=== PATIENT | female | born 1995 | race Caucasian/White ===

== ENCOUNTER → 2018-07-21 | Outpatient (CLI) | payer MEDICAID ==
[2017-01-13 19:30] VITALS: BMI 34.8
[~2018-07-21] MED LIST: ACE3 PO; ACET500T68 PO; FLU60SYR36 IM; IBUP800T37 PO; PNV1TABL77 PO
[2018-07-21 09:52] LABS: PLATELET COUNT, AUTOMATED 234 K/uL (150-450)
== END ==
LOC: LAB 08:38
PROVIDERS: ATTEND Obstetrics & Gynecology
DX: Z34.91 Encounter for supervision of normal pregnancy, unspecified, first trimester (principal)
CPT/HCPCS: 36415; 81001; 85025; 86592; 86703; 86762; 86850; 86900; 86901; 87088; 87340

== ENCOUNTER → 2018-08-14 | Outpatient (CLI) | payer MEDICAID ==
[2017-01-13 19:30] VITALS: BMI 34.8
== END ==
LOC: LAB 07:59
PROVIDERS: ATTEND Student in an Organized Health Care Education/Training Program
DX: Z34.91 Encounter for supervision of normal pregnancy, unspecified, first trimester (principal)
CPT/HCPCS: 87491; 87591

== ENCOUNTER → 2018-09-13 | Outpatient (CLI) | payer MEDICAID ==
[2017-01-13 19:30] VITALS: BMI 34.8
[~2018-09-13] MED LIST changes: +BUTA1TAB14 PO
== END ==
LOC: LAB 08:05
PROVIDERS: ATTEND Obstetrics & Gynecology
DX: O24.410 Gestational diabetes mellitus in pregnancy, diet controlled (principal)
CPT/HCPCS: 36415; 82950

== ENCOUNTER → 2018-10-30 | Outpatient (CLI) | payer MEDICAID ==
[2017-01-13 19:30] VITALS: BMI 34.8
--- NOTE | 2018-10-30 14:03 | RADIOLOGY IMAGING REPORT ---
FACILITY: [facility] [place] PATIENT NAME: Antoinette Weldon : 1995 MR: [id number] V: [id number] EXAM DATE: ORDERING PHYSICIAN: JAZLYN GLEZ TECHNOLOGIST: [place] [facility] [place] Antoinette Weldon : 1995 Visit/Account:[id number] Date of Sevice: 10/30/2018 [facility] [place] OB ANATOMICAL SURVEY HISTORY: Anatomic survey COMPARISON: None. TECHNIQUE: Transabdominal imaging was performed for assessment of the fetus and maternal pelvic s tructures. Transvaginal imaging was not performed. FINDINGS: Intrauterine gestations: One. presentation: Variable. heart rate: 149 bpm. Amniotic fluid volume: Normal; DUNG 15.66 cm; MVP 4.95 cm. Placenta: Anterior. Uterus: Gravid, otherwise grossly unremarkable where visualized. Maternal adnexa/ovaries: Grossly unremarkable, ovaries not visualized. Cervix: Grossly long and closed. Gestational Parameters: BPD: 5.147 m, 66th percentile HC: 19.45 cm, 64th percentile AC: 18.4 cm, 94th percentile FL: 3.58 cm, 47th percentile Average ultrasound age (AUA): 22 weeks/ one days Estimated age based on LMP: 21 weeks/ one days Estimated weight (EFW): 490 grams +/- 72 grams consistent with the 94th percentile Anatomic Survey: Intracranial structures, 4-chamber heart, stomach, kidneys, urinary bladder, spine, 3-vessel cord and cord insertion are unremarkable. Two upper and two lower extremities visualized. IMPRESSION: Single viable fetus in varied presentation with an estimated gestational age by measurements of 22 we eks and one day. . Estimated gestational age by LMP is 21 weeks and one day. Estimated weight 490 g which is consistent with the 94th percentile Report Dictated By: Jess Armas MD at 10/30/2018 1:55 PM Report E-Signed By: Jess Armas MD at 10/30/2018 1:59 PM WSN:MARIA LUISA
== END ==
LOC: RAD 08:02
PROVIDERS: ATTEND Student in an Organized Health Care Education/Training Program
DX: Z02.9 Encounter for administrative examinations, unspecified (principal)

== ENCOUNTER → 2018-12-11 | Outpatient (CLI) | payer MEDICAID ==
[2017-01-13 19:30] VITALS: BMI 34.8
[~2018-12-11] MED LIST changes: +BLOO-292 ASDIRECTED; +BLOO-960 MC; +DIPH0.5D12 IM; +LANC-165 ASDIRECTED
[2018-12-11 16:09] LABS: PLATELET COUNT, AUTOMATED 194 K/uL (150-450)
== END ==
LOC: LAB 14:56
PROVIDERS: ATTEND Student in an Organized Health Care Education/Training Program
DX: Z34.92 Encounter for supervision of normal pregnancy, unspecified, second trimester (principal)
CPT/HCPCS: 36415; 82950; 85025

== ENCOUNTER → 2018-12-13 | Outpatient (CLI) | payer MEDICAID ==
[2017-01-13 19:30] VITALS: BMI 34.8
== END ==
LOC: LAB 07:03
PROVIDERS: ATTEND Student in an Organized Health Care Education/Training Program
DX: O99.810 Abnormal glucose complicating pregnancy (principal)
CPT/HCPCS: 36415; 82951; 82952

== ENCOUNTER 2018-12-18 14:34 | Outpatient (RCR) | payer MEDICAID ==
[2017-01-13 19:30] VITALS: BMI 34.8
--- NOTE | 2018-12-19 09:58 | Medical Nutrition Therapy ---
Nutrition/Food History Breakfast: eggs, 1/2c hashbrowns Lunch: sandwich, or leftovers Dinner: meat, 1/2c rice, potatoe, noodles, veg Snacks: string cheese, jerky Nutritional Education Nutrition Education Topic: Diabetic Nutrition (gestational) Learning Readiness: Interested Teaching Methods: Discussion Response to Teaching: Return demonstration, Verbalize understanding Teaching Recipient: Patient Nutrition Counseling: Late entry of 12/18: 2nd pregnacily with gestational DM. Pt was aware of diet for gestational DM and has cut back her CHO to 30gm bkft and 45 gm lunch and supper. Recommend pt add 15gm CHO + protein tid snacks if she is hungary. Pt has been taking her BG before breakfast and 2 hrs after each meal. Reviewed BG readings. Most reading were within desired range. Pt identified what foods triggered higher reading. Pt is craving sweets which did cause a higher reading when she ate it. Encoruaged pt to try diet jello, diet hard candy and gums and small piece of dark chocolate to help with cravings. No f/u appt scheduled d/t demonstration of knowlege but contact information provided and pt encouraged to contact RD/CDE if further questions or concerns. Nutrition Monitoring & Eval RD Patient Assessment Time: [address] Assessment Type: RD Education Nutritional Comment: Provided 45 minutes of diabetes education focusing on nutrition and BG readings. Copies To Copies to: GENNY TORRES DO ; JESÚS MICHELLE Dec 19, 2018 09:58
== END 2018-12-27 10:51 | disposition home or self-care (01) ==
LOC: DIET 14:34
PROVIDERS: ATTEND Student in an Organized Health Care Education/Training Program
DX: O24.410 Gestational diabetes mellitus in pregnancy, diet controlled (principal)
CPT/HCPCS: G0108

== ENCOUNTER 2019-01-20 19:28 | Observation (INO) | payer MEDICAID ==
[~2019-01-20] VITALS: Ht 157.5 cm; Wt 79.4 kg
[~2019-01-20 19:28] MED LIST changes: -DIPH0.5D12 IM; +DIPH0.5S2 IM
[2019-01-20] MEDS ORDERED: FLUSH 10 ML SYR IVP PRN (20:25)
[2019-01-20 21:06] LABS: PLATELET COUNT, AUTOMATED 185 K/uL (150-450)
[2019-01-20] MEDS ORDERED: LR(*) 1000 ML BAG 1,000 ML IV PRN ×2 (21:35→21:45)
[2019-01-20 21:41] VITALS: BP 140/89; Ht 157.5 cm; Wt 79.4 kg
--- NOTE | 2019-01-20 21:46 | History & Physical ---
History of Present Illness Age of Patient: 23 : 2 Para or TPAL: 1 EDC per LMP: Mar 11, 2019 EDC per U/S: Mar 11, 2019 Estimated Gestational Age: 32.6 Chief Complaint "contractions" History of Present Illness Pt is a 23 y/o Cauc at 32 6/7 that presents with report of contractions since midday, became more noticeable around 3 pm and she started monitoring contractions. Denies any vaginal bleeding, LOF, intercourse in the last 24-48 hours. Does report increased pelvic pressure. Reports +FM. Pt denies hx of labor with prior . Did have a hx of PreE and GDM. Pt reported that her BS at 1800 was 68 and did eat something, postprandial was 120. Denies POSEY, epigastric pain or visual changes. History Patient's Blood Type: A Positive Rubella Status: Immune Group B Strep Screen: Unknown Obstetrical History: obstetric hx has been complicated by A1GDM. Previous was induced at 37 wks for PreE. Uncomplicated thereafter. Past Medical History: Denies acute or chronic health problems, no prior hx of labor. Takes vitamins and occasional tylenol. Had 2011 ACL R wrist surgery Allergies: Coded Allergies: No Known Drug Allergies (Unverified , 01/13/17) Social History: , accompanied by . Denies alcohol tobacco or drug use. Family History: FH: leukemia P UNCLE FH: lung cancer PGF FH: non-Hodgkin's lymphoma MGM FHx: lymphoma M AUNT Med Rec Home Meds Active Scripts Lancets (Blood Lancets) 30 Gauge Each, EA ASDIRECTED DIRECTED, #100 5 Refills Check blood glucose fasting in AM than 2 hours after each meal (4 times per day). Prov:GENNY TORRES DO 12/13/18 True Metrix Glucose Test Strip (True Metrix Glucose Test Strip) 1 Each Strip, EACH ASDIRECTED DIRECTED, #100 5 Refills Check blood glucose fasting in AM then 2 hours after each meal (4 times per day). Prov:GENNY TORRES DO 12/13/18 Blood-Glucose Meter (BLOOD GLUCOSE METER) 1 Each Each, EACH MC DIRECTED, #1 0 Refills Check blood glucose fasting in AM and 2 hours after each meal (4 times per day). Prov:GENNY TORRES DO 12/13/18 Butalb/Acetaminophen/Caff 50-325-40 Mg (FIORICET 50-325-40) 1 Each Tablet, 1-2 TAB PO Q6H PRN for headache, #30 TAB 1 Refill Prov:JAZLYN GLEZ MD 09/12/18 Reported Medications Acetaminophen (TYLENOL EXTRA STRENGTH) 500 Mg Tablet, 1000 MG PO PRN, TAB 01/13/17 Pnv Cmb#21/Iron/Folic Acid ( COMPLETE CAPLET) 1 Each Tablet, 1 EACH PO DAILY 01/13/17 Review of Systems Constitutional: No Fever, No Chills Neurological: No Dizziness Eyes: No Vision Change Cardiovascular: No Chest Pain Respiratory: No Shortness of Breath Gastrointestinal: No Nausea, No Vomiting, No Diarrhea Genitourinary: No Dysuria, No Hematuria Psychiatric: No Depression, No Anxiety Exam General Exam General Apperance: Alert/Awake/No Acute Distress, Afebrile; No Facial Edema Neuro: No Headache ENT: Moist Mucous Membranes Cardiovascular: Regular Rate and Rhythm Respiratory: Clear to Auscultation Abdomen: Soft, Non-Tender, Non-Distended, Gravid - Non-Tender : No CVA Tenderness Psychological: Alert & Oriented X3 Vaginal Discharge/Fluid?: Large Amount (yellow white creamy discharge) Cervical Dialation: 0 Cervical Effacement (%): 0 Cervical Consistency: Soft Cervical Position: Posterior Station: Ballotable Presentation: Vertex (per US, MVP 2.77) Uterine Contractions(Q min): 8 (UC have ceased after fluid bolus.) Uterine Contraction Strength: Mild UC Resting Tone: Soft Fetus Feeling Movement?: Yes Estimated Weight(grams): 1200 Heart Tones: 140 Heart Tone Variabilty: Moderate FHT Accelerations: Present FHT Decelerations: Variable (one variable noted, patient repositioned. 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 DC to home with labor precautions, return if UCs return, increase in frequency, ROM or vaginal bleeding, decreased movement. 2. Keep regular appt. 3. Push fluids,increase protein intake. (2) Gestational hypertension Status: Acute Assessment & Plan: A: Normotensive P: 1. reviewed PIH precautions, return if headache, epigastric pain or visual changes. (3) Gestational diabetes mellitus, class A1 Status: Acute Assessment & Plan: A: Euglycemic on discharge P: 1. continue to monitor BS as instructed in clinic 2. F/U as routinely scheduled. Condition Condition improved, no contractions after fluid bolus. RICARDA CHANEY CNM Jan 20, 2019 21:25
[2019-01-20] MEDS ORDERED: PREN-127 PO (22:22)
--- NOTE | 2019-01-20 22:25 | OB/GYN Discharge Summary ---
Discharge Summary Reason for Hosp/Final Diag: (1) contractions Onset Date: ~ 01/20/2019 Status: Resolved (2) Gestational hypertension Status: Acute Hospital Course & Plan: Normotensive P: 1. continue to monitor as indicated, reviewed s/s of Pre E (3) Gestational diabetes mellitus, class A1 Status: Acute Hospital Course & Plan: A: Euglycemic P: 1. continue to monitor BS as instructed in clinic, maintain A1GDM diet. 2. Keep regularly scheduled appt Weight (Pounds): 175 Result Diagram: 01/20/19203401/20/192034 Condition: Improved Discharge: Home, Self Residential Meds Active Scripts Lancets (Blood Lancets) 30 Gauge Each, EA ASDIRECTED DIRECTED, #100 5 Refills Check blood glucose fasting in AM than 2 hours after each meal (4 times per day). Prov:GENNY TORRES DO 12/13/18 True Metrix Glucose Test Strip (True Metrix Glucose Test Strip) 1 Each Strip, EACH ASDIRECTED DIRECTED, #100 5 Refills Check blood glucose fasting in AM then 2 hours after each meal (4 times per day). Prov:GENNY TORRES DO 12/13/18 Blood-Glucose Meter (BLOOD GLUCOSE METER) 1 Each Each, EACH MC DIRECTED, #1 0 Refills Check blood glucose fasting in AM and 2 hours after each meal (4 times per day). Prov:BRIANGENNY ARREDONDO DO 12/13/18 Butalb/Acetaminophen/Caff 50-325-40 Mg (FIORICET 50-325-40) 1 Each Tablet, 1-2 TAB PO Q6H PRN for headache, #30 TAB 1 Refill Prov:JAZLYN GLEZ MD 09/12/18 Reported Medications Acetaminophen (TYLENOL EXTRA STRENGTH) 500 Mg Tablet, 1000 MG PO PRN, TAB 01/13/17 Pnv Cmb#21/Iron/Folic Acid ( COMPLETE CAPLET) 1 Each Tablet, 1 EACH PO DAILY 01/13/17 Follow up with: [facility] [phone] Follow up in: Keep scheduled appoint Discharge Diet: Resume Prior Admit Diet, Increase Fluid Intake Discharge Activity: As Tolerates Special Instructions: RICARDA CHANEY CNM Jan 20, 2019 22:25
== END 2019-01-20 22:20 | disposition home or self-care (01) ==
LOC: INTOOBSV 19:28 → OB 19:28
PROVIDERS: ADMIT Obstetrics & Gynecology; ATTEND Obstetrics & Gynecology
DX: O47.03 False labor before 37 completed weeks of gestation, third trimester (principal); O13.3 Gestational [pregnancy-induced] hypertension without significant proteinuria, third trimester; O24.419 Gestational diabetes mellitus in pregnancy, unspecified control; Z3A.32 32 weeks gestation of pregnancy
CPT/HCPCS: 36416; 59025; 81001; 82570; 82731; 82948; 83615; 84156; 84550; 85025; 87077; 87081; 87186; 87210; G0378; G0379; 82040; 82247; 82310; 82374; 82435; 82565; 82947; 84075; 84132; 84155; 84295; 84450; 84460; 84520

== ENCOUNTER → 2019-02-12 | Outpatient (CLI) | payer MEDICAID ==
[2019-01-20 21:41] VITALS: BMI 32.0
[~2019-02-12] MED LIST changes: +PREN-127 PO
== END ==
LOC: LAB 08:07
PROVIDERS: ATTEND Student in an Organized Health Care Education/Training Program
DX: Z36.89 Encounter for other specified antenatal screening (principal)
CPT/HCPCS: 87081

== ENCOUNTER → 2019-02-14 | Outpatient (CLI) | payer MEDICAID ==
[2019-01-20 21:41] VITALS: BMI 32.0
[~2019-02-14] MED LIST changes: +BET6I IM ONLY
== END ==
LOC: LAB 09:39
PROVIDERS: ATTEND Student in an Organized Health Care Education/Training Program
DX: O13.3 Gestational [pregnancy-induced] hypertension without significant proteinuria, third trimester (principal)
CPT/HCPCS: 36415; 82040; 82247; 82310; 82374; 82435; 82565; 82570; 82947; 84075; 84132; 84155; 84156; 84295; 84450; 84460; 84520; 85027

== ENCOUNTER 2019-02-19 05:30 | Inpatient (IN) | payer MEDICAID ==
[~2019-02-19] VITALS: Ht 157.5 cm; Wt 81.6 kg
[2019-02-19] MEDS ORDERED: OXYTOCIN 30 UNIT/NS 500 ML 500 ML IV PRN ×2 (05:31)
[2019-02-19] MEDS ORDERED: FAMOTIDINE(*) 20MG/50ML PREMIX 50 ML IVPB PRN (05:31)
[2019-02-19] MEDS ORDERED: ceFAZolin(*) 2GM/D5W 50ML 50 ML IVPB PRN (05:31)
[2019-02-19] MEDS ORDERED: fentaNYL CITR 100 MCG/2 ML AMP IVP PRN (05:35)
[2019-02-19] MEDS ORDERED: LIDOCAINE/SOD BICARB 8.4% SYR SC PRN (05:35)
[2019-02-19] MEDS ORDERED: DLR(*) 1000 ML BAG 1,000 ML IV PRN ×2 (05:35→06:47)
[2019-02-19] MEDS ORDERED: TERBUTALINE SULF 1 MG/ML VIAL SUBQ PRN (05:35)
[2019-02-19] MEDS ORDERED: LIDOCAINE 1% LOCAL 300 MG/30ML INJ PRN (05:35)
[2019-02-19] MEDS ORDERED: METOCLOPRAMIDE 10 MG/2 ML SDV IVP PRN (05:35)
[2019-02-19] MEDS ORDERED: PENICILLIN G 5 MILLUN VIAL 5 MIU in NS(*) 0.9% 100 ML MINI-BAG 100 ML IVPB ONE ×2 (05:35→07:25)
[2019-02-19] MEDS: LR(*) 1000 ML BAG 1,000 ML IV PRN ×2 (06:07→09:39)
[2019-02-19 06:29] LABS: PLATELET COUNT, AUTOMATED 150 K/uL (150-450)
[2019-02-19 06:30] VITALS: BP 138/87; Ht 157.5 cm; Wt 81.6 kg
[2019-02-19] MEDS ORDERED: BUPIVACAINE 0.25% MPF INJ EPI PRN (07:25)
[2019-02-19] MEDS ORDERED: FENTANYL/ROPIVACAINE 100 ML BAG EPI PRN (07:25)
[2019-02-19] MEDS ORDERED: LIDOCAINE/PF 2% 200MG/10ML AMP 200 MG/10 ML AMPUL EPI PRN (07:25)
[2019-02-19] MEDS ORDERED: BUPIVACAINE 0.5% INJ 30ML VIAL EPI PRN (07:25)
[2019-02-19] MEDS ORDERED: fentaNYL CITR 100 MCG/2 ML AMP IT PRN (07:25)
[2019-02-19] MEDS ORDERED: LIDO/EPI 2% MPF 1:200,000 20ML EPI PRN (07:25)
[2019-02-19] MEDS ORDERED: ePHEDrine 25 MG/5 ML DISP.SYR IVP ONE (09:36)
[2019-02-19] MEDS ORDERED: fentaNYL CITR 100 MCG/2 ML AMP ONE (09:55)
[2019-02-19] MEDS ORDERED: FENTANYL/ROPIVACAINE 100ML BAG 0 ML ONE (09:56)
[2019-02-19] MEDS ORDERED: BUPIVACAINE 0.25% MPF INJ ONE (09:56)
[2019-02-19] MEDS ORDERED: ONDANSETRON 4 MG/2 ML VIAL ONE (09:56)
[2019-02-19] MEDS ORDERED: PENICILLIN G 2.5 MILLUN/100 ML 100 ML IVPB SCH (10:00)
[2019-02-19] MEDS ORDERED: HYDROCORTISONE 2.5% CR 30GM TB PR PRN (10:40)
[2019-02-19] MEDS ORDERED: INFLUENZA VIRUS VAC 0.5ML SYR IM ONLY ONE (10:40)
[2019-02-19] MEDS ORDERED: LANOLIN OINT 7 GM TUBE TP PRN (10:40)
[2019-02-19] MEDS ORDERED: BENZOCAINE 20% 60 ML BTL TP PRN (10:40)
[2019-02-19] MEDS ORDERED: GLYCERIN/WITCH HAZEL LEAF 1 PK TP PRN (10:40)
[2019-02-19] MEDS ORDERED: APAP/HYDROCODONE 325/5 TAB PO PRN (10:40)
[2019-02-19] MEDS ORDERED: MAGNESIUM HYDROXIDE* 30ML UDCP PO PRN (10:40)
[2019-02-19] MEDS ORDERED: OXYTOCIN 30 UNIT/NS 500 ML 500 ML ONE (10:56)
[2019-02-19] MEDS ORDERED: IBUPROFEN 800 MG TAB PO SCH ×2 (11:00→12:00)
[2019-02-19] MEDS ORDERED: METHYLERGONOVINE MAL 0.2MG/ML ONE (11:18)
[2019-02-19] MEDS ORDERED: KETOROLAC 30 MG/ML VIAL IVP ONE (11:19)
--- NOTE | 2019-02-19 12:32 | History & Physical ---
History of Present Illness Age of Patient: 23 : 2 Para or TPAL: 1 EDC per LMP: Mar 11, 2019 Estimated Gestational Age: 37.1 Chief Complaint IOL History of Present Illness 23-year-old who presents to labor and delivery for induction of labor secondary to gestational hypertension. Patient has received betamethasone injections 2. Patient's is also when comp kid by gestational diabetes and has been diet-controlled. Patient reports that she has had good movement while on labor and delivery. Reports spontaneous rupture of membranes with significant leaking of fluid around 9:30. No vaginal bleeding. History Patient's Blood Type: A Positive Rubella Status: Immune Group B Strep Screen: Positive Obstetrical History: Gestational diabetes A1/diet-controlled. Gestational hypertension Past Medical History: History of gestational diabetes in prior Allergies: Coded Allergies: No Known Drug Allergies (Unverified , 01/13/17) Social History: , accompanied by . Denies alcohol tobacco or drug use. Family History: FH: leukemia P UNCLE FH: lung cancer PGF FH: non-Hodgkin's lymphoma MGM FHx: lymphoma M AUNT Med Rec Home Meds Active Scripts Lancets (Blood Lancets) 30 Gauge Each, EA ASDIRECTED DIRECTED, #100 5 Refills Check blood glucose fasting in AM than 2 hours after each meal (4 times per day). Prov:GENNY TORRES DO 12/13/18 True Metrix Glucose Test Strip (True Metrix Glucose Test Strip) 1 Each Strip, EACH ASDIRECTED DIRECTED, #100 5 Refills Check blood glucose fasting in AM then 2 hours after each meal (4 times per day). Prov:GENNY TORRES DO 12/13/18 Blood-Glucose Meter (BLOOD GLUCOSE METER) 1 Each Each, EACH MC DIRECTED, #1 0 Refills Check blood glucose fasting in AM and 2 hours after each meal (4 times per day). Prov:GENNY TORRES DO 12/13/18 Butalb/Acetaminophen/Caff 50-325-40 Mg (FIORICET 50-325-40) 1 Each Tablet, 1-2 TAB PO Q6H PRN for headache, #30 TAB 1 Refill Prov:JAZLYN GLEZ MD 09/12/18 Reported Medications Vits W-Ca,Fe,Fa(<1MG) ( VITAMINS) 1 Each Tablet, 1 EACH PO DAILY, TAB 01/20/19 Acetaminophen (TYLENOL EXTRA STRENGTH) 500 Mg Tablet, 1000 MG PO PRN, TAB 01/13/17 Pnv Cmb#21/Iron/Folic Acid ( COMPLETE CAPLET) 1 Each Tablet, 1 EACH PO DAILY 01/13/17 Review of Systems All Systems Reviewed/Normal: Yes, Except as Noted Constitutional: No Fever, No Weight Loss, No Weight Gain, No Chills, No Night Sweats, No Other Neurological: No Syncope, No Confusion, No Weakness, No Dizziness, No Slurred Speech, No Other Eyes: No Vision Change, No Loss of Vision, No Photophobia, No Other ENT: No Hearing Loss, No Sinus Congestion, No Sore Throat, No Ear Ache, No Tinnitus, No Other Cardiovascular: No Chest Pain, No Palpitations, No Orthostatic Hypotension, No Other Respiratory: No Shortness of Breath, No Cough, No Wheezing, No Other Gastrointestinal: No Nausea, No Vomiting, No Diarrhea, No Dysphagia, No Constipation, No Early Satiety, No Hematemesis, No Hematochezia, No Melena, No Abdominal Pain, No Other Genitourinary: No Dysuria, No Hematuria, No Urinary Incontinence, No Other Musculoskeletal: No Pain, No Sprain, No Strain, No Impaired Mobility, No Other Psychiatric: No Depression, No Anxiety, No Other Exam General Exam Vital Signs Vital Signs Date Time Temp Pulse Resp B/P (MAP) Pulse Ox O2 Delivery O2 Flow Rate FiO2 02/19/19 06:30 99.3 84 17 138/87 (104) 94 Room Air General Apperance: Alert/Awake/No Acute Distress Neuro: No Gross deficits Eyes: Normal Extraocular Movement & Vison, PERRLA ENT: Normal Cardiovascular: Regular Rate and Rhythm Respiratory: No Respiratory Distress, Clear to Auscultation Abdomen: Soft, Non-Tender, Non-Distended, Gravid - Non-Tender : Normal Musculoskeletal: No Weakness/Pain Extremities: No Cyanosis,Clubbing or Edema Integumentary: Skin Intact without Lesions or Rash Psychological: Alert & Oriented X3 Vaginal Discharge/Fluid?: Clear Fluid, Bloody Fluid Cervical Dialation: 3 Cervical Effacement (%): 80 Cervical Consistency: Soft Station: -2 Presentation: Vertex Uterine Contractions(Q min): 2 UC Resting Tone: Soft Fetus Feeling Movement?: Yes Heart Tone Variabilty: Moderate FHT Accelerations: 15X15 FHT Decelerations: None FHT Category: I Medical Decision Making Data Points Result Diagram: 02/19/1960902/19/19609 Pre-Admit Course Medical Record Review: Yes VTE Prophylasis: Adult Deep Vein Thrombosis/Pulmonary: No Assessment and Plan BUSINESS CONSULT Assessment: Stable BUSINESS CONSULT Plan: Routine Labor/Induct Care Problems: (1) Gestational diabetes mellitus, class A1 Status: Acute Assessment & Plan: Monitor blood sugars in active labor. range 90-120. Ins ulin or D5LR to keep in range. (2) Gestational hypertension Status: Acute Assessment & Plan: Oxytocin IOL. Plan for . Problem Qualifiers (1) Gestational hypertension: Trimester: third trimester Qualified Codes: O13.3 - Gestational [-induced] hypertension without significant proteinuria, third trimester GENNY TORRES DO February 19, 2019 12:32
--- NOTE | 2019-02-19 12:58 | OB Delivery Note ---
Delivery Note Vaginal Delivery Type: Spont. Vaginal Delivery Delivery Date: February 19, 2019 Delivery Time: 10:12 Estimated Gestational Age(wks): 37.1 Length of Labor Stage I (hrs): 1.5 Length of Labor Stage II (hrs): 0.25 Labor Stage III (minutes): 7 Delivery Anesthesia: Local (10 cc 1% Lidocaine for repair only) Sex: Male Weight (gms): 3465 (7#10oz) Apgars: 1 Minute (8), 5 Minute (9) Repair Needed: Laceration, 2nd Degree Estimated Blood Loss: 500 (Post hemorrhage 2 hours after delivery of 1070 gm (weighed)) Delivery Complications: Precipitous Buccaro in Attendence: GENNY Jennings DO February 19, 2019 12:58
--- NOTE | 2019-02-19 13:59 | DELIVERY NOTE ---
DELIVERY DATE: February 19, 2019 SURGEON: Carrillo Almodovar DO ANESTHESIA: 10 cc of 1% lidocaine for repair only. PREOPERATIVE DIAGNOSES 1. 23-year-old 2, para 1 at 37-1/7 weeks gestation. 2. Induction of labor. 3. Gestational hypertension. 4. Gestational diabetes A1. POSTOPERATIVE DIAGNOSES 1. 23-year-old 2, para 1 at 37-1/7 weeks gestation. 2. Induction of labor. 3. Gestational hypertension. 4. Gestational diabetes A1. 5. Delivered. 6. Uterine atony. PROCEDURE Spontaneous vaginal delivery with repair of second-degree midline laceration. FINDINGS Live-born male infant at 10:12 a.m. of 02/19/2019 with Apgars of 8 and 9, weighing 3465 gram, 7 pounds 10 ounces, 3-vessel cord, intact placenta over a second-degree midline laceration. ESTIMATED BLOOD LOSS 500 cc at time of delivery. The patient did have 1070 grams weighed 2 hours later at first ambulation. Did receive Methergine 0.2 mg IM at that time as well as an additional oxytocin bolus. COMPLICATIONS None known. CONDITION Stable times 2. Mother and to LDRP. COUNTS Correct for all needles, lap, sponges, and instruments. LABOR SUMMARY The patient is a 23-year-old 2, para 1 who was diagnosed with gestational hypertension in the clinic. She did receive betamethasone at 36- weeks and was induced accordingly. The patient did have oxytocin for an induction agent. She progressed rapidly from 1 to 2 cm to complete. The patient did desire an epidural, but secondary to increased pressure, she did not have time for epidural. The patient made it to complete without any difficulty and after 2 contractions pushed and delivered a live-born male infant. DELIVERY SUMMARY The patient was placed in lithotomy position. Upon maternal pushing, there was a significant gush of fluid noted that was meconium stained amniotic fluid. Shortly after that, the 's head was pushed and delivered without any difficulty. The anterior shoulders were delivered with gentle downward motion, the posterior shoulders with gentle upward motion. The remainder of the infant's body was delivered spontaneously. A vigorous male was then placed on maternal abdomen, where it was vigorously cleaned and dried. Mouth and nose were bulb suctioned and the infant was then tended to by the nursing staff. After the cord had stopped pulsating, the cord blood gases were then obtained. The placenta delivered spontaneously with gentle cord traction. Oxytocin was infused to help with uterine tone. The uterus was massaged and deemed firm. Upon inspection of the perineum, vagina, cervix, and labia, it was noted that there was a second-degree midline laceration. This was initially anesthetized with 10 cc of 1% lidocaine. Once anesthesia was achieved, the patient then underwent repair in the usual manner with a 3-0 Vicryl. At this point, the patient was cleaned. The bleeding was controlled. 2-hours post-delivery called by nursing staff to evaluate significant bleeding. The patient was given 0.2 mg of Methergine IM. The patient's pad was weighed and weighed 1070 grams of blood . The patient is hemodynamically stable at this time and no longer bleeding. The patient was ambulatory and she made it back to her bed without any difficulty. NELL
[2019-02-19] MEDS ORDERED: LIDOCAINE 1% LOCAL 300 MG/30ML 30 ML ONE (15:25)
[2019-02-19 16:20] VITALS: BP 138/67
[2019-02-19] MEDS: IBUPROFEN 800 MG TAB PO SCH (17:01)
[2019-02-19 19:54] VITALS: BP 113/72
[2019-02-19] MEDS: DOCUSATE CALCIUM 240 MG CAP PO SCH (21:37)
[2019-02-19 23:35] VITALS: BP 101/59
[2019-02-20] MEDS: IBUPROFEN 800 MG TAB PO SCH ×3 (01:32→16:57)
[2019-02-20] MEDS ORDERED: PENICILLIN G 2.5 MILLUN/100 ML 100 ML IVPB SCH (02:00)
[2019-02-20 03:14] VITALS: BP 113/77
[2019-02-20 08:00] VITALS: BP 127/67
[2019-02-20] MEDS: DOCUSATE CALCIUM 240 MG CAP PO SCH (09:02)
[2019-02-20] MEDS: ACETAMINOPHEN 325 MG TAB PO PRN ×2 (09:03→16:57)
[2019-02-20 12:00] VITALS: BP 146/86
--- NOTE | 2019-02-20 13:03 | OB/GYN Progress Note ---
OB Subjective Progress Notes Subjective Doing good day #1. Denies any shortness of breath or chest pain. Reports ambulation without any difficulty. Lochia appropriate since yesterday. Breast-feeding with minimal difficulty. Tolerating regular diet no issues with voiding. GI: NEG Nausea, NEG Vomiting, NEG Flatus, NEG Bowel Movement : Voiding Well, Vaginal Bleeding Pain: Mild Neurological: Headache Eyes: No Visual Disturbances OB Objective Physical Exam Vital Signs Date Time Temp Pulse Resp B/P (MAP) Pulse Ox O2 Delivery O2 Flow Rate FiO2 02/20/19 08:00 97.8 101 18 127/67 (87) 95 Room Air Intake and Output 02/20/19 06:59 Intake Total 3320 ml Balance 3320 ml Intake Oral 200 ml IV Total 3120 ml # Voids 4 General Appearance: Alert/Awake/No Acute Distress Neurological: No Gross deficits Eyes: Normal Extraocular Movement & Vison, PERRLA ENT: Normal Cardiovascular: Regular Rate and Rhythm Respiratory: No Respiratory Distress, Clear to Auscultation Extremities: No Cyanosis,Clubbing or Edema Integumentary: Skin Intact without Lesions or Rash Psychological: Alert & Oriented X3 Result Diagram: 02/20/19 0611 02/19/19 0610 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 If infants discharge was held will plan to remove in. Follow up in the office in 2 weeks. Problem Qualifiers (1) Gestational hypertension: Trimester: third trimester Qualified Codes: O13.3 - Gestational [- induced] hypertension without significant proteinuria, third trimester GENNY TORRES DO February 20, 2019 13:03
--- NOTE | 2019-02-20 13:07 | OB/GYN Discharge Summary ---
Discharge Summary Reason for Hosp/Final Diag: (1) Gestational diabetes mellitus, class A1 Status: Acute Hospital Course & Plan: Patient presented for scheduled induction of labor secondary to gestational hypertension. She was induced without any difficulty. She did progress quickly to complete and felt the urge to push prior to be able to receive an epidural. Patient quickly delivered a liveborn male without difficulty. Please see operative report/delivery note for details of procedure. Patient remained in the hospital for 1 day post . Patient did have a heavyset of bleeding approximately 2 hours after delivery that was treated with one dose of IM Methergine. Bleeding remained stable thereafter. Hemoglobin did drop into the nines but patient was asymptomatic. Patient will continue her vitamin that has fair sulfate and it to help with hemoglobin repletion. Patient follow up in 2 weeks for check. No restrictions outside of nothing per vagina this time. (2) Gestational hypertension Status: Acute Lates Vital Signs Vital Signs Date Time Temp Pulse Resp B/P (MAP) Pulse Ox O2 Delivery O2 Flow Rate FiO2 02/20/19 08:00 97.8 101 18 127/67 (87) 95 Room Air Weight (Pounds): 180 Result Diagram: 02/20/19 0611 02/19/19 0610 Condition: Improved Discharge: Home Home Meds Active Scripts Lancets (Blood Lancets) 30 Gauge Each, EA ASDIRECTED DIRECTED, #100 5 Refills Check blood glucose fasting in AM than 2 hours after each meal (4 times per day). Prov:GENNY TORRES DO 12/13/18 True Metrix Glucose Test Strip (True Metrix Glucose Test Strip) 1 Each Strip, EACH ASDIRECTED DIRECTED, #100 5 Refills Check blood glucose fasting in AM then 2 hours after each meal (4 times per day). Prov:GENNY TORRES DO 12/13/18 Blood-Glucose Meter (BLOOD GLUCOSE METER) 1 Each Each, EACH MC DIRECTED, #1 0 Refills Check blood glucose fasting in AM and 2 hours after each meal (4 times per day). Prov:GENNY TORRES DO 12/13/18 Butalb/Acetaminophen/Caff 50-325-40 Mg (FIORICET 50-325-40) 1 Each Tablet, 1-2 TAB PO Q6H PRN for headache, #30 TAB 1 Refill Prov:JAZLYN GLEZ MD 09/12/18 Reported Medications Vits W-Ca,Fe,Fa(<1MG) ( VITAMINS) 1 Each Tablet, 1 EACH PO DAILY, TAB 01/20/19 Acetaminophen (TYLENOL EXTRA STRENGTH) 500 Mg Tablet, 1000 MG PO PRN, TAB 01/13/17 Pnv Cmb#21/Iron/Folic Acid ( COMPLETE CAPLET) 1 Each Tablet, 1 EACH PO DAILY 01/13/17 Follow up with: [facility] [phone], Dr. Torres [phone] Follow up in: 6 wks PP or PO, 2 wks PO Discharge Diet: As Tolerates Discharge Activity: As Tolerates, Pelvic Rest Problem Qualifiers (1) Gestational hypertension: Trimester: third trimester Qualified Codes: O13.3 - Gestational [- induced] hypertension without significant proteinuria, third trimester GENNY TORRES DO February 20, 2019 13:07
[2019-02-21] MEDS ORDERED: DIPHTH/TETANUS/ACEL. PERTUSSIS IM ONLY ONE (10:00)
[2019-02-21] MEDS ORDERED: MEASLES,MUMP,RUBELLA VAC 0.5ML SUBQ ONE (10:40)
== END 2019-02-20 17:45 | disposition home or self-care (01) | DRG 807 ==
LOC: OB 05:30
PROVIDERS: ADMIT Student in an Organized Health Care Education/Training Program; ATTEND Student in an Organized Health Care Education/Training Program
PROC: 10E0XZZ Delivery of Products of Conception, External Approach (ICD-10-PCS; principal; 2019-02-19)
PROC: 0KQM0ZZ Repair Perineum Muscle, Open Approach (ICD-10-PCS; 2019-02-19)
PROC: 3E033VJ Introduction of Other Hormone into Peripheral Vein, Percutaneous Approach (ICD-10-PCS; 2019-02-19)
DX: O13.4 Gestational [pregnancy-induced] hypertension without significant proteinuria, complicating childbirth (principal); Z37.0 Single live birth; O24.420 Gestational diabetes mellitus in childbirth, diet controlled; O70.1 Second degree perineal laceration during delivery; O62.3 Precipitate labor; O72.2 Delayed and secondary postpartum hemorrhage; O77.0 Labor and delivery complicated by meconium in amniotic fluid; Z3A.37 37 weeks gestation of pregnancy
CPT/HCPCS: 36415; 36416; 82040; 82247; 82310; 82374; 82435; 82565; 82570; 82947; 82948; 84075; 84132; 84155; 84156; 84295; 84450; 84460; 84520; 85025; 85027; 86850; 86900; 86901; J1885; J2001; J2210; J2405; J2540; J7120